=== PATIENT | male | born 1995 | race Caucasian/White ===

== ENCOUNTER 2017-03-31 08:39 | Emergency (ER) | payer OTHER ==
[~2017-03-31] VITALS: Ht 170.2 cm; Wt 53.1 kg
[2017-03-31] MEDS ORDERED: POTASSIUM99 M1 PO (08:49)
[2017-03-31] MEDS ORDERED: MULTIVITAMINS1 EAC7 PO (08:49)
[2017-03-31] MEDS ORDERED: GLUCOSAMINE1000 MG PO (08:49)
== END 2017-03-31 09:36 | disposition home or self-care (01) ==
LOC: ED 08:39
PROC: 0HQGXZZ Repair Left Hand Skin, External Approach (ICD-10-PCS; principal; 2017-03-31)
DX: S61.213A Laceration without foreign body of left middle finger without damage to nail, initial encounter (principal); F17.200 Nicotine dependence, unspecified, uncomplicated; Z79.899 Other long term (current) drug therapy; Z79.84 Long term (current) use of oral hypoglycemic drugs; W45.8XXA Other foreign body or object entering through skin, initial encounter
CPT/HCPCS: 12001; 99282